=== PATIENT | female | born 1980 | race Caucasian/White ===

== ENCOUNTER 2017-02-11 07:12 | Emergency (ER) | payer OTHER ==
[~2017-02-11] VITALS: Ht 165.1 cm; Wt 98.0 kg
[2017-02-11 08:45] VITALS: BP 121/79
== END 2017-02-11 08:45 | disposition home or self-care (01) ==
LOC: ED 07:12
DX: L03.012 Cellulitis of left finger (principal); F41.9 Anxiety disorder, unspecified; F31.9 Bipolar disorder, unspecified; Z98.51 Tubal ligation status
CPT/HCPCS: J2001; J3490

== ENCOUNTER 2017-06-23 08:19 | Emergency (ER) | payer OTHER ==
[~2017-06-23] VITALS: Ht 165.1 cm; Wt 88.6 kg
[2017-06-23 09:12] LABS: CALCIUM 8.9 mg/dL (8.5-10.1); CARBON DIOXIDE 25.5 mmol/L (21-32); CHLORIDE SERUM 109 mmol/L (98-107); CREATININE SERUM 0.8 mg/dL (0.6-1.0); GFR1 > 60 mL/min; GLUCOSE SERUM 120 mg/dL (74-106); POTASSIUM SERUM 3.6 mmol/L (3.5-5.1); SODIUM SERUM 143 mmol/L (136-145)
[2017-06-23 10:41] LABS: BASOPHIL % 0.5 % (0-2); PLATELET COUNT 171 x10^3mcL (130-400); RED CELL DISTRIBUTION WIDTH 13.3 % (11.5-14.5)
[2017-06-23 11:04] VITALS: BP 110/63
== END 2017-06-23 11:04 | disposition home or self-care (01) ==
LOC: ED 08:19
PROVIDERS: Emergency Medicine
DX: R53.1 Weakness (principal); R11.0 Nausea; F41.9 Anxiety disorder, unspecified; F31.9 Bipolar disorder, unspecified; Z98.51 Tubal ligation status; Z88.8 Allergy status to other drugs, medicaments and biological substances
CPT/HCPCS: 36415; Q0162

== ENCOUNTER 2018-03-26 06:37 | Emergency (ER) | payer MEDICARE, OTHER ==
[~2018-03-26] VITALS: Ht 160 cm; Wt 69.8 kg
[2018-03-26 06:41] VITALS: Ht 160 cm; Wt 69.8 kg
[2018-03-26 07:14] LABS: BASOPHIL % 0.6 % (0-2); PLATELET COUNT 153 x10^3mcL (130-400); RED CELL DISTRIBUTION WIDTH 12.8 % (11.5-14.5)
[2018-03-26 07:35] LABS: CALCIUM 7.8 mg/dL (8.5-10.1); CARBON DIOXIDE 30.8 mmol/L (21-32); CHLORIDE SERUM 108 mmol/L (98-107); CREATININE SERUM 0.6 mg/dL (0.6-1.0); GFR1 > 60 mL/min; GLUCOSE SERUM 106 mg/dL (74-106); POTASSIUM SERUM 3.6 mmol/L (3.5-5.1); SODIUM SERUM 143 mmol/L (136-145)
[2018-03-26 07:40] LABS: ALBUMIN 3.6 g/dL (3.4-5.0); ALKALINE PHOSPHATASE 68 U/L (46-116); ALT/SGPT 14 U/L (14-59); AST/SGOT 17 U/L (15-37); BILIRUBIN TOTAL 0.5 mg/dL (0.20-1.00); LIPASE 88 IU/L (73-393); TOTAL PROTEIN, SERUM 6.4 g/dL (6.4-8.2)
[2018-03-26 08:26] VITALS: BP 125/70
== END 2018-03-26 09:01 | disposition home or self-care (01) ==
LOC: ED 06:37
PROVIDERS: Emergency Medicine
DX: K29.70 Gastritis, unspecified, without bleeding (principal); R35.0 Frequency of micturition; R30.0 Dysuria; Z88.8 Allergy status to other drugs, medicaments and biological substances
CPT/HCPCS: J2405